=== PATIENT | female | born 1945 | race Caucasian/White ===

== ENCOUNTER 2023-05-18 11:33 | Observation (INO) ==
[~2023-05-18 11:33] MED LIST: HYDROmorphone 1 MG/1 ML SYRINGE IV PRN; Naloxone 0.4 mg VIAL 0.4 mg/ml 1 ml VIAL IV PRN; Ondansetron 4 mg VIAL 2 MG/ML 2 ml VIAL IV PRN; fentaNYL 100 mcg/2 ml 50 MCG/ML VIAL IV PRN
[2023-05-18] MEDS ORDERED: fentaNYL 100 mcg/2 ml 50 MCG/ML VIAL ONE (12:24)
[2023-05-18] MEDS ORDERED: Lidocaine 2% PF 5 ML VIAL ONE (12:24)
[2023-05-18] MEDS ORDERED: Midazolam 2 mg/2 ml VIAL 1 mg/ml 2 ml VIAL (2 mg) ONE (12:24)
[2023-05-18] MEDS ORDERED: Ondansetron 4 mg VIAL 2 MG/ML 2 ml VIAL ONE (12:25)
[2023-05-18 12:38] LABS: Rapid COVID-19 Molecular Undetected (Undetected)
[2023-05-18] MEDS ORDERED: ceFAZolin 2 GM in NS PREMIX 2 GM/100 ML BAG IVPB ONE (13:24)
[2023-05-18 13:37] VITALS: BP 128/76
[2023-05-18] MEDS ORDERED: Buffered Lidocaine 1% SYRIN 1 ml INTRADERM ONE (13:55)
[2023-05-18] MEDS ORDERED: Lactated Ringers 1000 ml BAG 1,000 ML IV SCH ×2 (14:00→17:00)
[2023-05-18] MEDS ORDERED: Dexamethasone IV 4 MG/ML VIAL 1 ml VIAL ONE (15:54)
[2023-05-18] MEDS ORDERED: Lactulose 30 ml UDC PO PRN (16:15)
[2023-05-18] MEDS ORDERED: Morphine 2 MG/ML SYRINGE IV PRN (16:15)
[2023-05-18] MEDS ORDERED: Magnesium Hydroxide LIQ 30 ML UDC PO PRN (16:15)
[2023-05-18] MEDS ORDERED: Ondansetron 4 mg VIAL 2 MG/ML 2 ml VIAL IV PRN (16:15)
[2023-05-18] MEDS ORDERED: Ondansetron ODT 4 mg TAB 4 MG TAB PO PRN (16:15)
[2023-05-18] MEDS ORDERED: KETAMINE HCL 10 MG/ML 20 ml VIAL (200 MG) ONE (16:21)
[2023-05-18] MEDS ORDERED: Rocuronium 50 mg VIAL 10 mg/ml 5 ml VIAL (50 mg) ONE (16:23)
[2023-05-18] MEDS ORDERED: ceFAZolin 1 GM ADVAN 1 GM in NS 0.9% 50 ML 50 ML IVPB SCH (17:00)
[2023-05-18 17:20] LABS: Hematocrit 31.8 % (35-45); Hemoglobin 10.4 g/dL (11.5-14.3); Mean Corpuscular Hemoglobin 28.6 pg (27-33); Mean Corpuscular Hgb Conc 32.8 g/dL (31-36); Mean Corpuscular Volume 87.2 fL (80-97); Mean Platelet Volume 10.2 fL (7.5-11.2); Platelet Count 155 10^3/uL (150-450); Red Blood Count 3.65 10^6/uL (3.63-4.92); Red Cell Distribution Width 14.6 % (12-17); White Blood Count 8.2 10^3/uL (3.8-11.8)
[2023-05-18 17:38] LABS: Calcium 7.8 mg/dL (8.6-10.3); Creatinine, Serum 1.6 mg/dL (0.51-0.95); Phosphorus 4.1 mg/dL (2.5-5.0); eGFR CKD-EPI 33.2 (>60)
[2023-05-18 17:40] LABS: Activated Partial Thrombo Time 44.3 seconds (26.0-38.0); INR 1.23 (0.83-1.13)
[2023-05-18 18:05] LABS: Body Fluid Mono 1 %; Body Fluid Total Cells Counted 200
[2023-05-18 18:09] LABS: Body Fluid Appearance Cloudy; Body Fluid Source Synovial Fluid
[2023-05-18 18:18] LABS: Body Fluid Total Nucleated 26634 /mcL
[2023-05-18] MEDS ORDERED: Magnesium Hydroxide LIQ 30 ML UDC PO SCH (21:00)
[2023-05-19] MEDS ORDERED: Vitamin THERAPEUTIC TAB PO SCH (09:00)
== END 2023-05-18 17:40 | disposition expired | DRG 463 ==
LOC: INTOOBSV 11:33 → AA 11:33 → ICU 16:56 → AA 17:42
PROVIDERS: ADMIT Orthopaedic Surgery Adult Reconstructive Orthopaedic Surgery; ATTEND Student in an Organized Health Care Education/Training Program